=== PATIENT | male | born 1990 | race African-American/Black ===

== ENCOUNTER 2025-06-05 14:36 | Emergency (ER) | payer BC ==
[2025-06-05] MEDS: Magnesium Hydroxide 400 MG/5 ML Susp 30 ML Cup PO ONE (15:00)
== END 2025-06-05 15:40 | disposition home or self-care (01) ==
LOC: LL.ED 14:36 → SUPCPDRO 14:36 → LL.ED 15:40
DX: K59.01 Slow transit constipation (principal)
CPT/HCPCS: 99283; A9270